=== PATIENT | female | born 1950 | race Caucasian/White ===

== ENCOUNTER → 2017-12-16 08:08 | Outpatient (CLI) | payer OTHER, SELFPAY ==
--- NOTE | 2017-12-16 | DI.MG.S_ITS ---
BILATERAL DIGITAL SCREENING MAMMOGRAM 3D/2D WITH CAD: 12/16/2017 CLINICAL: Routine screening. Family history of breast cancer. Comparison is made to exams dated: 06/18/2016 mammogram, 06/07/2014 mammogram - [facility], and 02/21/2013 ultrasound - [facility]. The tissue of both breasts is heterogeneously dense. This may lower the sensitivity of mammography. Current study was also evaluated with a Computer Aided Detection (CAD) system. There is a biopsy clip in the right breast. No significant masses, calcifications, or other findings are seen in either breast. There has been no significant interval change. IMPRESSION: NEGATIVE There is no mammographic evidence of malignancy. A 1 year screening mammogram is recommended. This exam was interpreted at Station ID: [id number]. NOTE: For mammograms, a report in lay terms will be sent to the patient. Approximately 15% of breast malignancies will not be visualized mammographically. In the management of a palpable breast mass, a negative mammogram must not discourage biopsy of a clinically suspicious lesion. Electronically Signed By: Magy sellers/kemi:12/16/2017 10:40:52 letter sent: Normal Exam ACR BI-RADS Category 1: Negative 3341F
== END ==
PROVIDERS: Family Provider Physician Assistant; PCP Physician Assistant; Visit Provider Physician Assistant
DX: Z12.31 Encounter for screening mammogram for malignant neoplasm of breast (principal); Z80.3 Family history of malignant neoplasm of breast
CPT/HCPCS: 77063; 77067

== ENCOUNTER → 2017-12-22 09:15 | Outpatient (CLI) | payer OTHER, SELFPAY ==
--- NOTE | 2017-12-22 09:38 | DI.RAD.S_ITS ---
PROCEDURE: XR CHEST 2V INDICATIONS: cough, dyspnea, possible CHF vs exacerbation of COPD TECHNIQUE: 2 views of the chest were acquired. COMPARISON: [facility], , CHEST 1 VIEW, 08/08/2017, 20:40. FINDINGS: Surgical changes and devices: Surgical clips RUQ. Lungs and pleura: No pleural effusions or pneumothorax. Lungs are clear. Hyperinflation. Mediastinum: Mediastinal contours are normal. Heart size is normal. Bones and chest wall: No suspicious bony abnormalities. Soft tissues appear unremarkable. IMPRESSION: No radiographic evidence of acute cardiopulmonary pathology. Hyperinflation may represent COPD. Dictated by: Emanuel Lloyd M.D. on 12/22/2017 at 10:43 Approved by: Emanuel Lloyd M.D. on 12/22/2017 at 10:44
[2017-12-22 09:57] LABS: Alanine Aminotransferase 14 IU/L (9-52); Albumin 4.2 g/dL (3.5-5.0); Albumin Globulin Ratio 1.3 (1.0-2.8); Alkaline Phosphatase 80 U/L (38-126); Aspartate Aminotransferase 21 IU/L (14-36); B Type Natriuretic Peptide 66.5 (<100); BUN Creatinine Ratio 23.3 (6-22); Bilirubin Total 0.3 mg/dL (0.2-1.3); Blood Urea Nitrogen 14 mg/dL (7-17); Calcium 9.3 mg/dL (8.4-10.2); Carbon Dioxide 29 mmol/L (22-32); Chloride 104 mmol/L (98-107); Cholesterol 168 mg/dL (140-199); Estimated Glomerular Filt Rate > 60.0 mL/min (>60); Globulin 3.3 g/dL (1.7-4.1); Glucose 95 mg/dL (80-110); HDL Cholesterol 73 mg/dL (40-60); HEMOLYSIS < 15 (0-50); LDL Cholesterol Calculated 81 mg/dL (<100); Potassium 3.9 mmol/L (3.4-5.1); Sodium 143 mmol/L (137-145); Total Protein 7.5 g/dL (6.3-8.2); Triglycerides 71 mg/dL (35-150)
[2017-12-22 12:32] LABS: Creatinine Urine Random 43.2 mg/dL
[2017-12-22 12:41] LABS: Microalbumi Creatinin Ratio Ur 13.8 ug/mg CR (<30); Microalbumin Urine Random < 0.6 mg/dL (0-1.6)
== END ==
PROVIDERS: Family Provider Physician Assistant; PCP Physician Assistant; Visit Provider Physician Assistant
DX: E78.5 Hyperlipidemia, unspecified (principal); I10 Essential (primary) hypertension; R05 Cough; R09.89 Other specified symptoms and signs involving the circulatory and respiratory systems; R06.00 Dyspnea, unspecified
CPT/HCPCS: 71046; 80053; 80061; 82043; 82570; 83880

== ENCOUNTER → 2018-09-11 08:11 | Outpatient (CLI) | payer OTHER, SELFPAY ==
[2018-09-11 09:34] LABS: Alanine Aminotransferase 14 IU/L (9-52); Albumin Globulin Ratio 1.3 (1.0-2.8); Alkaline Phosphatase 75 U/L (38-126); Aspartate Aminotransferase 20 IU/L (14-36); BUN Creatinine Ratio 21.7 (6-22); Bilirubin Total 0.5 mg/dL (0.2-1.3); Blood Urea Nitrogen 13 mg/dL (7-17); Calcium 9.1 mg/dL (8.4-10.2); Carbon Dioxide 29 mmol/L (22-32); Chloride 103 mmol/L (98-107); Cholesterol 171 mg/dL (140-199); Estimated Glomerular Filt Rate > 60.0 mL/min (>60); Globulin 3.1 g/dL (1.7-4.1); Glucose 97 mg/dL (80-110); HDL Cholesterol 72 mg/dL (40-60); HEMOLYSIS < 15 (0-50); LDL Cholesterol Calculated 82 mg/dL (<100); Potassium 3.8 mmol/L (3.4-5.1); Sodium 139 mmol/L (137-145); Total Protein 7.1 g/dL (6.3-8.2); Triglycerides 85 mg/dL (35-150)
[2018-09-11 11:37] LABS: Microalbumi Creatinin Ratio Ur 10.7 ug/mg CR (<30); Microalbumin Urine Random < 0.6 mg/dL (0-1.6)
== END ==
PROVIDERS: Family Provider Physician Assistant; PCP Physician Assistant; Referring Provider Internal Medicine Cardiovascular Disease; Visit Provider Physician Assistant
DX: E55.9 Vitamin D deficiency, unspecified (principal); E78.5 Hyperlipidemia, unspecified; F17.200 Nicotine dependence, unspecified, uncomplicated; I10 Essential (primary) hypertension; I20.0 Unstable angina; I77.1 Stricture of artery; J44.9 Chronic obstructive pulmonary disease, unspecified; M85.80 Other specified disorders of bone density and structure, unspecified site
CPT/HCPCS: 36415; 80053; 80061; 82043; 82306; 82570

== ENCOUNTER → 2018-09-20 08:36 | Outpatient (CLI) | payer OTHER, SELFPAY ==
--- NOTE | 2018-09-20 | DI.ECHO.S_ITS ---
[facility] +---------+ [facility] +---------+ : : [address] : : : : [place] : : : : [id number] : : : : Phone: [phone]---------+ Echocardiogram Report + + :Name: SYDNEE LANGE Study Date: 09/20/2018 Height: 62 in : :[facility] Location: [place] Weight: 181 lb : : Gender: Female BSA: 1.8 m2 : :: 1950 Age: 67 yrs BP: 160/80 mmHg: :Reason For Study: Aortic valve disorder : :Ordering Physician: : :Isidoro Duffy M.D. Performed By: Kimberly Page : + + Interpretation Summary sThe ejection fraction is estimated to be 60-65%. There is mild to moderate mitral annular calcification. The aortic valve is not well visualized. The peak aortic velocity is 2.1 m/sec. The calculated aortic valve area is 0.93 cm2. This is an overestimate of severity, consider ZENY if clinical findings support severe Procedure: A two-dimensional transthoracic echocardiogram with color flow and Doppler was performed. The study quality was technically adequate. Comparison is made with the echocardiogram of 08/09/2017. The patient was in normal sinus rhythm during the exam. Left Ventricle: The left ventricle is normal in size, wall thickness, and systolic function without any focal wall motion abnormalities. The ejection fraction is estimated to be 60-65%. Left ventricular wall motion is normal. Right Ventricle: The right ventricle is normal in size and function. Atria: The left atrium is borderline dilated. Right atrial size is normal. There is no Doppler evidence for an interatrial shunt. Mitral Valve: There is mild to moderate mitral annular calcification. There is trace mitral regurgitation. Aortic Valve: The aortic valve is not well visualized. The peak aortic velocity is 2.1 m/sec. The peak aortic velocity on the previous exam was 1.9 m/sec. The calculated aortic valve area is 0.93 cm2. The aortic valve mean gradient is 9.0 mmHg. No aortic regurgitation is present. Tricuspid Valve: The tricuspid valve is not well visualized, but is grossly normal. There is a trace or physiologic amount of tricuspid regurgitation. Pulmonary artery pressures cannot be estimated because of the lack of a measurable TR jet velocity. Pulmonic Valve: The pulmonic valve is not well visualized. There is trace pulmonic regurgitation. Great Vessels: The aortic root is normal size. The ascending aorta could not be visualized. The pulmonary is not well visualized. The IVC is of normal diameter and collapses greater than 50% with a sniff. This suggests a low right atrial pressure of 3 mm Hg. Pericardium/ Pleura There is no pericardial effusion. There is no pleural effusion. MMode/2D Measurements & Calculations LVIDd: 4.1 cm LVOT diam: 1.7 cm LVIDs: 3.2 cm Ao root diam: 2.8 cm FS: 22.6 % IVSd: 0.95 cm LVPWd: 0.95 cm LV ennis. diameter/BSA (cm/m^2): 2.3 LV sys. diameter/BSA (cm/m^2): 1.7 LA A2 area: 20.0 cm2 RA long axis: 4.6 cm LA A4 area: 19.9 cm2 RA area: 14.2 cm2 LA length (vol): 5.3 cm RA vol: 37.2 ml LA vol: 63.7 ml RA : 20.3 ml/m2 LA vol index: 34.8 ml/m2 IVC diam: 2.0 cm RVD1 (basal): 3.5 cm TAPSE: 2.3 cm Doppler Measurements & Calculations Ao V2 max: 205.7 cm/sec LVOT Max Felix: 90.1 cm/sec Ao V2 mean: 144.9 cm/sec LV V1 max P.2 mmHg Ao max P.9 mmHg LV V1 VTI: 18.5 cm Ao mean P.0 mmHg RACHEL(I,D): 0.93 cm2 Ao V2 VTI: 45.8 cm RACHEL(V,D): 1.0 cm2 sev ratio: 0.40 RACHEL indexed to BSA (cm^2/m^2): 0.51 MV E max felix: 110.4 cm/sec PA V2 max: 60.5 cm/sec MV A max felix: 107.9 cm/sec PA V2 mean: 43.8 cm/sec MV E/A: 1.0 PA mean P.84 mmHg Med Peak E' Felix: 7.3 cm/sec PA Accel Time: 0.15 sec E/E' med: 15.1 Lat Peak E' Felix: 8.6 cm/sec E/E' lat: 12.9 E/e' average: 14.0 MV dec time: 0.19 sec MV P1/2t: 55.8 msec MV P1/2t max felix: 110.5 cm/sec SV(LVOT): 42.4 ml MVA(P1/2t): 3.9 cm2 Reading Physician:01:36 PM
== END ==
PROVIDERS: PCP Physician Assistant; Visit Provider Internal Medicine Cardiovascular Disease
DX: I35.9 Nonrheumatic aortic valve disorder, unspecified (principal)
CPT/HCPCS: 93306

== ENCOUNTER → 2019-04-30 07:05 | Outpatient (CLI) | payer OTHER, SELFPAY ==
[2019-04-30 08:18] LABS: Add Manual Diff / Slide Review NO; Basophils Absolute Auto 100 /uL (0-100); Eosinophils Absolute Auto 100 /uL (0-450); Eosinophils Percent Auto 2.3 % (2-4); Hematocrit 41.2 % (36-46); Hemoglobin 13.9 g/dL (12.0-16.0); Lymphocytes Absolute Auto 2300 /uL (1100-4500); Mean Corpuscular HGB Conc 33.8 % (30-36); Mean Corpuscular Hemoglobin 32.5 PG (26-34); Mean Corpuscular Volume 96.3 fL (80-100); Monocytes Absolute Auto 400 /uL (0-900); Monocytes Percent Auto 7.6 % (3-14); Neutrophils Absolute Auto 2400 /uL (1500-7000); Neutrophils Percent Auto 46.1 % (50-75); Platelet Count 227 X10^3/uL (150-400); Red Blood Cell Count 4.27 X10^6/uL (4.0-5.2); Red Cell Distribution Width 15.7 % (11.6-14.8); White Blood Cell Count 5.2 X10^3/uL (4.5-11.0)
[2019-04-30 08:52] LABS: Alanine Aminotransferase 15 IU/L (<35); Albumin 4.3 g/dL (3.5-5.0); Albumin Globulin Ratio 1.3 (1.0-2.8); Alkaline Phosphatase 66 U/L (38-126); Aspartate Aminotransferase 25 IU/L (14-36); BUN Creatinine Ratio 18.6 (6-22); Blood Urea Nitrogen 13 mg/dL (7-17); Calcium 9.4 mg/dL (8.4-10.2); Carbon Dioxide 29 mmol/L (22-32); Chloride 104 mmol/L (98-107); Cholesterol 185 mg/dL (140-199); Estimated Glomerular Filt Rate > 60.0 mL/min (>60); Globulin 3.2 g/dL (1.7-4.1); Glucose 95 mg/dL (80-110); HDL Cholesterol 71 mg/dL (40-60); HEMOLYSIS < 15 (0-50); LDL Cholesterol Calculated 92 mg/dL (<100); Potassium 4.1 mmol/L (3.4-5.1); Sodium 138 mmol/L (137-145); Total Protein 7.5 g/dL (6.3-8.2); Triglycerides 112 mg/dL (35-150)
[2019-04-30 08:58] LABS: Microalbumi Creatinin Ratio Ur 7.3 ug/mg CR (<30); Microalbumin Urine Random < 0.6 mg/dL (0-1.6)
[2019-04-30 09:06] LABS: Vitamin D 25 Hydroxy (D3) 44.8 ng/mL (30.0-100.0)
== END ==
PROVIDERS: Family Provider Internal Medicine Cardiovascular Disease; PCP Physician Assistant; Visit Provider Physician Assistant
DX: E78.5 Hyperlipidemia, unspecified (principal); I10 Essential (primary) hypertension; J44.9 Chronic obstructive pulmonary disease, unspecified; E55.9 Vitamin D deficiency, unspecified; M85.80 Other specified disorders of bone density and structure, unspecified site
CPT/HCPCS: 36415; 80053; 80061; 82043; 82306; 82570; 85025

== ENCOUNTER → 2019-05-09 15:02 | Outpatient (CLI) | payer OTHER, SELFPAY ==
--- NOTE | 2019-05-09 15:05 | DI.MG.S_ITS ---
BILATERAL DIGITAL SCREENING MAMMOGRAM 3D/2D WITH CAD: 05/09/2019 CLINICAL: Routine screening. Family history of breast cancer. Comparison is made to exams dated: 12/16/2017 mammogram, 06/18/2016 mammogram, and 06/07/2014 mammogram - [facility]. The tissue of both breasts is heterogeneously dense. This may lower the sensitivity of mammography. Current study was also evaluated with a Computer Aided Detection (CAD) system. There is a biopsy clip in the right breast. No significant masses, calcifications, or other findings are seen in either breast. There has been no significant interval change. IMPRESSION: NEGATIVE There is no mammographic evidence of malignancy. A 1 year screening mammogram is recommended. This exam was interpreted at Station ID: [id number]. NOTE: For mammograms, a report in lay terms will be sent to the patient. Approximately 15% of breast malignancies will not be visualized mammographically. In the management of a palpable breast mass, a negative mammogram must not discourage biopsy of a clinically suspicious lesion. Electronically Signed By: Pradip fair/kemi:05/09/2019 16:37:34 letter sent: Normal Exam ACR BI-RADS Category 1: Negative 3341F
== END ==
PROVIDERS: Family Provider Internal Medicine Cardiovascular Disease; PCP Physician Assistant; Visit Provider Physician Assistant
DX: Z12.31 Encounter for screening mammogram for malignant neoplasm of breast (principal); Z80.3 Family history of malignant neoplasm of breast; M85.851 Other specified disorders of bone density and structure, right thigh; Z78.0 Asymptomatic menopausal state; F17.200 Nicotine dependence, unspecified, uncomplicated; Z90.722 Acquired absence of ovaries, bilateral; Z82.62 Family history of osteoporosis
CPT/HCPCS: 77063; 77067; 77080

== ENCOUNTER → 2019-09-12 13:36 | Outpatient (CLI) | payer OTHER, SELFPAY ==
--- NOTE | 2019-09-12 | DI.ECHO.S_ITS ---
[place] +---------+ [facility] +---------+ : : [address] : : [place] : : : : [id number] : : : : Phone: [phone] : : [phone]+ Echocardiogram Report + + :Name: SYDNEE LANGE Study Date: 09/12/2019 Height: 61.5 in: :[facility] Weight: 181 lb : : Gender: Female BSA: 1.8 m2 : :: 1950 Age: 68 yrs : :Reason For Study: Aortic Valve Disorder : :Ordering Physician: Martha : :Clive Ma Performed By: Farhana Aguilar : :Referring: MARTHA DUFFY : + + Interpretation Summary The ejection fraction is estimated to be 55-60%. The aortic valve is mildly calcified. There is mild aortic stenosis. The calculated aortic valve area is 1.5 cm2. Procedure: A two-dimensional transthoracic echocardiogram with color flow and Doppler was performed. The study quality was technically difficult. Comparison is made with the echocardiogram of 04/30/2019. The patient was in normal sinus rhythm during the exam. Short segment of SVT visualized during exam with heart rate reaching 125bpm. Left Ventricle: The left ventricle is normal in size and wall thickness. The ejection fraction is estimated to be 55-60%. There are no obvious focal wall motion abnormalities noted but poor endocardial definition reduces the sensitivity for the detection of such. Right Ventricle: The right ventricle is normal in size and function. Atria: The left atrial size is normal. The right atrium is normal in size. There is no Doppler evidence for an interatrial shunt. Mitral Valve: The mitral valve is normal in structure and function. There is mild mitral annular calcification. There is trace mitral regurgitation. Aortic Valve: The aortic valve is mildly calcified. The aortic valve is trileaflet. There is mild aortic stenosis. The calculated aortic valve area is 1.5 cm2. There has been no significant change since the previous study. No aortic regurgitation is present. Tricuspid Valve: The tricuspid valve is normal in structure and function. There is a trace or physiologic amount of tricuspid regurgitation. Pulmonary artery pressures cannot be estimated because of the lack of a measurable TR jet velocity but the IVC suggests a CVP of around 3 mmHg. Pulmonic Valve: The pulmonic valve is not well visualized. There is no pulmonic valvular regurgitation. Great Vessels: The aortic root is normal size. The ascending aorta could not be visualized. The IVC is of normal diameter and collapses greater than 50% with a sniff. This suggests a low right atrial pressure of 3 mm Hg. Pericardium/ Pleura There is no pericardial effusion. There is no pleural effusion. MMode/2D Measurements & Calculations LVIDd: 3.4 cm LVOT diam: 2.0 cm LVIDs: 2.3 cm Ao root diam: 3.0 cm FS: 33.5 % Ao Arch Diam (Prox Trans): 2.3 cm EPSS: 0.64 cm IVSd: 1.0 cm LVPWd: 1.0 cm LV ennis. diameter/BSA (cm/m^2): 1.9 LV sys. diameter/BSA (cm/m^2): 1.2 LA A2 area: 14.8 cm2 RA long axis: 4.7 cm LA A4 area: 15.1 cm2 RA area: 11.9 cm2 LA length (vol): 5.0 cm RA vol: 25.7 ml LA vol: 38.1 ml RA : 14.1 ml/m2 LA vol index: 20.9 ml/m2 IVC diam: 1.4 cm RVD1 (basal): 3.0 cm TAPSE: 2.2 cm Doppler Measurements & Calculations Ao V2 max: 228.2 cm/sec LVOT Max Felix: 118.6 cm/sec Ao V2 mean: 145.1 cm/sec LV V1 max P.6 mmHg Ao max P.8 mmHg LV V1 VTI: 23.0 cm Ao mean P.9 mmHg RACHEL(I,D): 1.5 cm2 Ao V2 VTI: 47.7 cm RACHEL(V,D): 1.6 cm2 sev ratio: 0.48 RACHEL indexed to BSA (cm^2/m^2): 0.81 MV E max felix: 96.3 cm/sec PA V2 max: 89.4 cm/sec MV A max felix: 116.8 cm/sec PA V2 mean: 61.7 cm/sec MV E/A: 0.82 PA mean P.7 mmHg Med Peak E' Felix: 5.5 cm/sec PA pr(Accel): 32.3 mmHg E/E' med: 17.6 PA Accel Time: 0.09 sec Lat Peak E' Felix: 8.7 cm/sec E/E' lat: 11.0 E/e' average: 14.3 MV dec time: 0.31 sec MV P1/2t: 88.4 msec MV P1/2t max felix: 96.7 cm/sec SV(LVOT): 70.3 ml MVA(P1/2t): 2.5 cm2 Reading Physician:11:31 AM
== END ==
PROVIDERS: Family Provider Internal Medicine Cardiovascular Disease; PCP Family Medicine; Referring Provider Internal Medicine Cardiovascular Disease; Visit Provider Internal Medicine Cardiovascular Disease
DX: I35.0 Nonrheumatic aortic (valve) stenosis (principal)
CPT/HCPCS: 93306

== ENCOUNTER → 2019-11-14 09:43 | Outpatient (CLI) | payer OTHER, SELFPAY ==
[2019-11-14 10:14] LABS: Add Manual Diff / Slide Review NO; Basophils Absolute Auto 0 /uL (0-100); Basophils Percent Auto 0.8 % (0-2); Eosinophils Absolute Auto 100 /uL (0-450); Eosinophils Percent Auto 1.3 % (2-4); Hematocrit 40.3 % (36-46); Hemoglobin 13.7 g/dL (12.0-16.0); Lymphocytes Absolute Auto 2100 /uL (1100-4500); Lymphocytes Percent Auto 32.5 % (25-40); Mean Corpuscular Hemoglobin 33.2 PG (26-34); Mean Corpuscular Volume 97.8 fL (80-100); Monocytes Absolute Auto 400 /uL (0-900); Monocytes Percent Auto 6.7 % (3-14); Neutrophils Absolute Auto 3700 /uL (1500-7000); Neutrophils Percent Auto 58.7 % (50-75); Platelet Count 217 X10^3/uL (150-400); Red Blood Cell Count 4.12 X10^6/uL (4.0-5.2); Red Cell Distribution Width 15.3 % (11.6-14.8); White Blood Cell Count 6.4 X10^3/uL (4.5-11.0)
[2019-11-14 10:26] LABS: Alanine Aminotransferase 14 IU/L (<35); Albumin 4.4 g/dL (3.5-5.0); Albumin Globulin Ratio 1.3 (1.0-2.8); Alkaline Phosphatase 82 U/L (38-126); Aspartate Aminotransferase 23 IU/L (14-36); BUN Creatinine Ratio 22.9 (6-22); Bilirubin Total 0.6 mg/dL (0.2-1.3); Blood Urea Nitrogen 16 mg/dL (7-17); Carbon Dioxide 28 mmol/L (22-32); Chloride 102 mmol/L (98-107); Estimated Glomerular Filt Rate > 60.0 mL/min (>60); Globulin 3.5 g/dL (1.7-4.1); Glucose 105 mg/dL (80-110); HEMOLYSIS < 15 (0-50); Potassium 4.3 mmol/L (3.4-5.1); Sodium 139 mmol/L (137-145); Total Protein 7.9 g/dL (6.3-8.2)
[2019-11-14 13:17] LABS: Erythrocyte Sedimentation Rate 19 MM/HR (0-20)
[2019-11-16 22:35] LABS: Immunoglobulin E 247 IU/mL (6-495)
== END ==
PROVIDERS: Family Provider Internal Medicine Cardiovascular Disease; PCP Family Medicine; Referring Provider Allergy & Immunology; Visit Provider Allergy & Immunology
DX: J45.40 Moderate persistent asthma, uncomplicated (principal)
CPT/HCPCS: 36415; 80053; 82785; 85025; 85651

== ENCOUNTER → 2019-11-19 11:06 | Outpatient (CLI) | payer OTHER, SELFPAY ==
--- NOTE | 2019-11-19 | DI.RAD.S_ITS ---
PROCEDURE: XR CHEST 2V INDICATIONS: Chronic cough, long-term smoker TECHNIQUE: 2 views of the chest were acquired. COMPARISON: [facility], CR, XR CHEST 2V, 12/22/2017, 9:47. FINDINGS: Surgical changes and devices: Right upper quadrant surgical clips. Lungs and pleura: Lungs are clear. Scattered scarring/atelectasis No pleural effusions or pneumothorax. Mediastinum: Mediastinal contours are normal. Heart size is normal. Bones and chest wall: No suspicious bony abnormalities. Soft tissues appear unremarkable. IMPRESSION: No acute disease Dictated by: Pavel Fletcher M.D. on 11/19/2019 at 14:50 Approved by: Pavel Fletcher M.D. on 11/19/2019 at 14:50
--- NOTE | 2019-11-19 | DI.CT.S_ITS ---
PROCEDURE: CT SINUS SCREEN WO CON INDICATIONS: Chronic sinusitis TECHNIQUE: Noncontrast 3.0 mm axial images acquired from the frontal sinuses to the mid-sella, with coronal and sagittal reformats. For radiation dose reduction, the following was used: automated exposure control, adjustment of mA and/or kV according to patient size. COMPARISON: None. FINDINGS: Image quality: Excellent. Maxillary Sinuses: No bony remodeling or destruction. Sinuses are clear. Ethmoid Air Cells: No bony remodeling or destruction. Sinuses are clear. Sphenoid Sinuses: Mild mucosal thickening seen within the left sphenoid sinus. Frontal Sinuses: No bony remodeling or destruction. Sinuses are clear. Ostiomeatal Complexes: Ostiomeatal complexes are patent. No David cells. Miscellaneous: Visualized intra-orbital contents are normal. No lyndsay bullosa or paradoxical turbinate curvature. No nasal septal deviation. IMPRESSION: Mild left sphenoid sinus mucosal thickening. Otherwise, clear sinuses Dictated by: Pavel Fletcher M.D. on 11/19/2019 at 13:08 Approved by: Pavel Fletcher M.D. on 11/19/2019 at 13:12
== END ==
PROVIDERS: Family Provider Internal Medicine Cardiovascular Disease; PCP Family Medicine; Referring Provider Allergy & Immunology; Visit Provider Allergy & Immunology
DX: J32.9 Chronic sinusitis, unspecified (principal); R05 Cough; J45.40 Moderate persistent asthma, uncomplicated; F17.200 Nicotine dependence, unspecified, uncomplicated
CPT/HCPCS: 70486; 71046

== ENCOUNTER → 2020-02-01 10:06 | Outpatient (CLI) | payer OTHER, SELFPAY ==
[2020-02-01 10:51] LABS: Add Manual Diff / Slide Review NO; Basophils Absolute Auto 0 /uL (0-100); Basophils Percent Auto 0.8 % (0-2); Eosinophils Absolute Auto 100 /uL (0-450); Eosinophils Percent Auto 1.5 % (2-4); Hematocrit 40.1 % (36-46); Hemoglobin 13.2 g/dL (12.0-16.0); Lymphocytes Absolute Auto 2000 /uL (1100-4500); Lymphocytes Percent Auto 35.9 % (25-40); Mean Corpuscular HGB Conc 32.8 % (30-36); Mean Corpuscular Volume 97.5 fL (80-100); Monocytes Absolute Auto 400 /uL (0-900); Monocytes Percent Auto 7.7 % (3-14); Neutrophils Absolute Auto 3000 /uL (1500-7000); Neutrophils Percent Auto 54.1 % (50-75); Platelet Count 231 X10^3/uL (150-400); Red Blood Cell Count 4.11 X10^6/uL (4.0-5.2); Red Cell Distribution Width 15.9 % (11.6-14.8); White Blood Cell Count 5.6 X10^3/uL (4.5-11.0)
[2020-02-01 11:13] LABS: Erythrocyte Sedimentation Rate 23 MM/HR (0-20)
[2020-02-01 11:15] LABS: Alanine Aminotransferase 13 IU/L (<35); Albumin 4.3 g/dL (3.5-5.0); Albumin Globulin Ratio 1.4 (1.0-2.8); Alkaline Phosphatase 92 U/L (38-126); Aspartate Aminotransferase 20 IU/L (14-36); BUN Creatinine Ratio 26.9 (6-22); Bilirubin Total 0.6 mg/dL (0.2-1.3); Blood Urea Nitrogen 18 mg/dL (7-17); Calcium 9.6 mg/dL (8.4-10.2); Carbon Dioxide 29 mmol/L (22-32); Chloride 105 mmol/L (98-107); Estimated Glomerular Filt Rate > 60.0 mL/min (>60); Globulin 3.1 g/dL (1.7-4.1); Glucose 99 mg/dL (80-110); HEMOLYSIS < 15 (0-50); Potassium 4.1 mmol/L (3.4-5.1); Sodium 139 mmol/L (137-145); Total Protein 7.4 g/dL (6.3-8.2)
== END ==
PROVIDERS: Family Provider Internal Medicine Cardiovascular Disease; PCP Family Medicine; Referring Provider Family Medicine; Visit Provider Family Medicine
DX: J32.9 Chronic sinusitis, unspecified (principal); J45.40 Moderate persistent asthma, uncomplicated
CPT/HCPCS: 36415; 80053; 85025; 85651

== ENCOUNTER → 2020-06-14 09:29 | Outpatient (CLI) | payer OTHER, SELFPAY ==
[2020-06-14 11:06] LABS: COVID19 -Nasal RAPID Negative (Negative)
== END ==
PROVIDERS: Family Provider Internal Medicine Cardiovascular Disease; PCP Family Medicine; Visit Provider Nurse Practitioner
DX: Z20.822 Contact with and (suspected) exposure to COVID-19 (principal)
CPT/HCPCS: 87635

== ENCOUNTER 2020-06-17 07:26 | Day surgery (SDC) | payer OTHER, SELFPAY ==
[2020-06-17] MEDS: PROPARACAINE 0.5% OPHTH SOL 2 DROPS EYE-OP (07:50)
[2020-06-17 07:58] VITALS: BP 136/72; PULSE 80; RESP 18; TEMP 36.8; O2SAT 95; BMI 32.9
[2020-06-17] MEDS: CATARACT EYE COMPOUND (10 DROPS/SYRINGE) 3 DROPS EYE-OP (08:20)
--- NOTE | 2020-06-17 08:37 | PM.PREOP ---
Pre-operative Note Interval Note History & Physical reviewed/Exam performed by Physician: Yes Changes to H&P: No
--- NOTE | 2020-06-17 08:37 | PM.OP.1 ---
Operative Date/Time/Diagnoses Pre-op diagnosis: Nuclear cataract right eye Procedure & Clinicians Procedure: Cataract Surgery Same procedure as scheduled: Yes Surgeon: Jordan Babin Anesthesia Type: MAC +/- and Sedation Operative Notes Procedure in detail: Patient brought to the operating suite. Tetracaine drops placed in the right eye. Patient was prepped and draped in sterile manner. Wire lid speculum was placed in the eye. Betadine drops were placed on the eye. This was irrigated. Lidocaine jelly was placed on the eye. A paracentesis port was created with a side-port blade. 0.1 mL 1% preservative free lidocaine was injected into the anterior chamber. The anterior chamber was deepened with viscoelastic. 2.6 mm keratome was used to create a temporal clear corneal incision. Cystotome and Utrata forceps were used to create continuous tear capsulorrhexis. Balanced salt solution was used to hydro dissect the nucleus. The phacoemulsification handpiece was inserted and the nucleus was removed using the stop and chop technique. The irrigation aspiration handpiece was inserted and the remaining cortex was removed. Anterior chamber was deepened with viscoelastic. An Medina ZCB00 intraocular lens with a power of 24.5 was injected into the capsular bag. Irrigation aspiration handpiece was inserted and the remaining viscoelastic was removed. Incision was hydrated with balanced salt solution and found to be leak free with pressure with Weck-Aster sponges. 0.1 mL Vigamox injected anterior chamber. 0.3 mL Kenalog 10 mg was injected subconjunctivally. Lid speculum was removed. The patient left the operating room in excellent condition. Complications: none Post-operative Condition: stable Disposition: same day surgery
[2020-06-17] MEDS: MOXIFLOXACIN INJ 5 MG/ML VIAL EYE-OP (09:02)
[2020-06-17] MEDS: TRIAMCINOLONE 50 MG/5 ML VIAL INJ (09:02)
[2020-06-17] MEDS: PHENYLEPHRINE/LIDOCAINE VIAL (OR) 0.2 ML EYE-OP (09:02)
[2020-06-17] MEDS: LIDOCAINE JELLY 2% 5 ML 1 APPLIC TOP (09:03)
[2020-06-17] MEDS: CHONDROIDTIN/SOD HYALURONATE 1.05 ML SYRINGE INTRAOCULA (09:03)
[2020-06-17] MEDS: TETRACAINE 0.5% OPHTH DROPS 4 ML 2 DROPS EYE-OP (09:03)
[2020-06-17] MEDS: BALANCED SALT IRRIG SOLN NO.2 500 ML, EPINEPHrine 1 MG IRR (09:04)
[2020-06-17 09:15] VITALS: BP 132/69; PULSE 75; RESP 18; TEMP 36.1; O2SAT 96
--- NOTE | 2020-06-17 09:32 | SUR.PHASEII ---
Pt met criteria for discharge, VSS, denied any pain or nausea. R eye with shield in place, C/D/I. Transported via w/c to private vehicle.
== END 2020-06-17 09:28 | disposition home or self-care (01) ==
LOC: OR 07:27
PROVIDERS: Family Provider Internal Medicine Cardiovascular Disease; PCP Family Medicine; Referring Provider Family Medicine; Visit Provider Ophthalmology
PROC: (CPT 66984; principal; 2020-06-17 09:15)
DX: H25.11 Age-related nuclear cataract, right eye (principal); J45.909 Unspecified asthma, uncomplicated; I10 Essential (primary) hypertension; E78.00 Pure hypercholesterolemia, unspecified
CPT/HCPCS: 66984; J0171; J2250; J3301

== ENCOUNTER → 2020-06-28 10:08 | Outpatient (CLI) | payer OTHER, SELFPAY ==
[2020-06-28 10:53] LABS: COVID19 -Nasal RAPID Negative (Negative)
== END ==
PROVIDERS: Family Provider Internal Medicine Cardiovascular Disease; PCP Family Medicine; Visit Provider Physician Assistant
DX: Z20.822 Contact with and (suspected) exposure to COVID-19 (principal)
CPT/HCPCS: 87635

== ENCOUNTER 2020-07-01 09:19 | Day surgery (SDC) | payer OTHER, SELFPAY ==
[2020-07-01] MEDS: PROPARACAINE 0.5% OPHTH SOL 2 DROPS EYE-OP (09:50)
[2020-07-01 09:53] VITALS: BP 133/79; PULSE 80; RESP 16; TEMP 36.3; O2SAT 98; BMI 32.9
[2020-07-01] MEDS: CATARACT EYE COMPOUND (10 DROPS/SYRINGE) 3 DROPS EYE-OP (10:01)
--- NOTE | 2020-07-01 10:22 | P.OP_ITS ---
Operative Date/Time/Diagnoses Pre-op diagnosis: Nuclear Cataract Left eye Post-op diagnosis: same Procedure & Clinicians Same procedure as scheduled: Yes Surgeon: Jordan Babin Anesthesia Type: MAC +/- and Sedation Operative Notes Procedure in detail: Patient brought to the operating suite. Tetracaine drops placed in the left eye. Patient was prepped and draped in sterile manner. Wire lid speculum was placed in the eye. Betadine drops were placed on the eye. This was irrigated. Lidocaine jelly was placed on the eye. A paracentesis port was created with a side-port blade. 0.1 mL 1% preservative free lidocaine was injected into the anterior chamber. The anterior chamber was deepened with viscoelastic. 2.6 mm keratome was used to create a temporal clear corneal incision. Cystotome and Utrata forceps were used to create continuous tear capsulorrhexis. Balanced salt solution was used to hydro dissect the nucleus. The phacoemulsification handpiece was inserted and the nucleus was removed using the stop and chop technique. The irrigation aspiration handpiece was inserted and the remaining cortex was removed. Anterior chamber was deepened with viscoe lastic. An Medina ZCB00 intraocular lens with a power of 24.5 was injected into the capsular bag. Irrigation aspiration handpiece was inserted and the remaining viscoelastic was removed. Incision was hydrated with balanced salt solution and found to be leak free with pressure with Weck-Aster sponges. 0.1 mL Vigamox injected anterior chamber. 0.3 mL Kenalog 10 mg was injected subconjunctivally. Lid speculum was removed. The patient left the operating room in excellent condition. Complications: none Post-operative Condition: stable Disposition: same day surgery
--- NOTE | 2020-07-01 10:22 | PM.PREOP ---
Pre-operative Note Interval Note History & Physical reviewed/Exam performed by Physician: Yes Changes to H&P: No
[2020-07-01] MEDS: MOXIFLOXACIN INJ 5 MG/ML VIAL EYE-OP (10:53)
[2020-07-01] MEDS: CHONDROIDTIN/SOD HYALURONATE 1.05 ML SYRINGE INTRAOCULA (10:53)
[2020-07-01] MEDS: PHENYLEPHRINE/LIDOCAINE VIAL (OR) 0.2 ML EYE-OP (10:53)
[2020-07-01] MEDS: LIDOCAINE JELLY 2% 5 ML 1 APPLIC TOP (10:53)
[2020-07-01] MEDS: TRIAMCINOLONE 50 MG/5 ML VIAL INJ (10:53)
[2020-07-01] MEDS: TETRACAINE 0.5% OPHTH DROPS 4 ML 2 DROPS EYE-OP (10:54)
[2020-07-01] MEDS: BALANCED SALT IRRIG SOLN NO.2 500 ML, EPINEPHrine 1 MG IRR (10:54)
[2020-07-01 11:12] VITALS: BP 117/68; PULSE 76; RESP 16; TEMP 36.6; O2SAT 96
== END 2020-07-01 11:25 | disposition home or self-care (01) ==
PROVIDERS: Family Provider Internal Medicine Cardiovascular Disease; PCP Family Medicine; Referring Provider Ophthalmology; Visit Provider Ophthalmology
PROC: (CPT 66984; principal; 2020-07-01 11:15)
DX: H25.12 Age-related nuclear cataract, left eye (principal); K21.9 Gastro-esophageal reflux disease without esophagitis; J45.909 Unspecified asthma, uncomplicated; F41.9 Anxiety disorder, unspecified; I10 Essential (primary) hypertension; E66.9 Obesity, unspecified
CPT/HCPCS: 66984; J0171; J2250; J3301

== ENCOUNTER → 2020-07-11 13:37 | Outpatient (CLI) | payer OTHER, SELFPAY ==
--- NOTE | 2020-07-11 | DI.ECHO.S_ITS ---
[facility] +---------+ Hospital +---------+ : : [address] : : : [place] : : : : [phone] : : : : Phone: [phone] : : [phone] +---------+ Echocardiogram Report + + :Name: SYDNEE LANGE Study Date: 07/11/2020 Height: 62 in : :[facility] ReadingLocation: Weight: 178 lb : : Gender: Female BSA: 1.8 m2 : :: 1950 Age: 69 yrs BP: 146/73 mmHg: :Reason For Study: AORTIC VAVLE DISORDER : :Ordering Physician: Antonette : :Karan Performed By: Merline Stoll : + + Interpretation Summary The ejection fraction is estimated to be 60-65%. The aortic valve is mildly calcified. The calculated aortic valve area is 1.3 cm2. Procedure: A two-dimensional transthoracic echocardiogram with color flow and Doppler was performed. Images from the parasternal window were difficult to obtain and are suboptimal in quality. Comparison is made with the echocardiogram of 09/12/2019. The patient was in normal sinus rhythm during the exam. Left Ventricle: The left ventricle is normal in size. There is normal left ventricular wall thickness. There is no ventricular septal defect visualized. The ejection fraction is estimated to be 60-65%. There are no focal wall motion abnormalities. Right Ventricle: The right ventricle is normal in size and function. Atria: Both atria are normal in size. There is no Doppler evidence for an interatrial shunt. Mitral Valve: There is mild mitral annular calcification. There is no mitral regurgitation noted. Aortic Valve: The aortic valve is mildly calcified. The peak aortic velocity is 2.4 m/sec. The aortic valve mean gradient is 11.7 mmHg. The calculated aortic valve area is 1.3 cm2. Compared to the prior echo study, there has been an increase in the severity of aortic stenosis. No aortic regurgitation is present. Tricuspid Valve: The tricuspid valve is not well visualized. Pulmonary artery pressures cannot be estimated because of the lack of a measurable TR jet velocity but the IVC suggests a CVP of around 8 mmHg. Pulmonic Valve: The pulmonic valve is not well visualized. Great Vessels: The aortic root is normal size. The ascending aorta is normal in size. The aortic arch could not be visualized. The IVC is of normal diameter and collapses less than 50% with a sniff. This suggests a right atrial pressure of 8 mm Hg. Pericardium/ Pleura There is no pericardial effusion. MMode/2D Measurements & Calculations LVIDd: 4.0 cm LVOT diam: 2.0 cm LVIDs: 2.5 cm Ao root diam: 2.9 cm FS: 36.9 % asc Aorta Diam: 3.2 cm IVSd: 0.97 cm LVPWd: 0.92 cm LV ennis. diameter/BSA (cm/m^2): 2.2 LV sys. diameter/BSA (cm/m^2): 1.4 LA A2 area: 17.0 cm2 RA long axis: 4.0 cm LA A4 area: 16.5 cm2 RA area: 10.9 cm2 LA length (vol): 4.8 cm RA vol: 24.9 ml LA vol: 49.5 ml RA : 13.7 ml/m2 LA vol index: 27.2 ml/m2 IVC diam: 1.3 cm RVD1 (basal): 2.9 cm TAPSE: 2.5 cm Doppler Measurements & Calculations Ao V2 max: 241.7 cm/sec LVOT Max Felix: 89.6 cm/sec Ao V2 mean: 160.0 cm/sec LV V1 max P.2 mmHg Ao max P.4 mmHg LV V1 VTI: 20.2 cm Ao mean P.7 mmHg RACHEL(I,D): 1.3 cm2 Ao V2 VTI: 49.2 cm RACHEL(V,D): 1.1 cm2 sev ratio: 0.41 RACHEL indexed to BSA (cm^2/m^2): 0.70 MV E max felix: 93.0 cm/sec PA V2 max: 108.3 cm/sec MV A max felix: 123.5 cm/sec PA V2 mean: 67.7 cm/sec MV E/A: 0.75 PA mean P.2 mmHg Med Peak E' Felix: 5.1 cm/sec PA Accel Time: 0.08 sec E/E' med: 18.1 Lat Peak E' Felix: 8.8 cm/sec E/E' lat: 10.6 E/e' average: 14.3 MV dec time: 0.20 sec MV P1/2t: 59.4 msec MV P1/2t max felix: 93.1 cm/sec SV(LVOT): 62.4 ml MVA(P1/2t): 3.7 cm2 Reading Physician:01:24 PM
== END ==
PROVIDERS: Family Provider Internal Medicine Cardiovascular Disease; PCP Family Medicine; Referring Provider Registered Nurse; Visit Provider Registered Nurse
DX: I35.0 Nonrheumatic aortic (valve) stenosis (principal)
CPT/HCPCS: 93306

== ENCOUNTER → 2020-08-18 09:33 | Outpatient (CLI) | payer OTHER, SELFPAY ==
[2020-08-18 10:42] LABS: BUN Creatinine Ratio 22.5 (6-22); Blood Urea Nitrogen 16 mg/dL (7-17); Calcium 9.6 mg/dL (8.4-10.2); Carbon Dioxide 30 mmol/L (22-32); Chloride 102 mmol/L (98-107); Estimated Glomerular Filt Rate > 60.0 mL/min (>60); Glucose 105 mg/dL (80-110); HEMOLYSIS < 15 (0-50); Sodium 137 mmol/L (137-145)
== END ==
PROVIDERS: Family Provider Internal Medicine Cardiovascular Disease; PCP Family Medicine; Referring Provider Family Medicine; Visit Provider Family Medicine
DX: I10 Essential (primary) hypertension (principal)
CPT/HCPCS: 36415; 80048

== ENCOUNTER → 2020-09-18 13:30 | Outpatient (CLI) | payer MEDICARE, SELFPAY ==
[2020-09-18] MEDS: COVID-19 VACC #1, MRNA(MOD) 100 MCG/0.5 ML VIAL IM (13:41)
== END ==
PROVIDERS: Family Provider Internal Medicine Cardiovascular Disease; PCP Family Medicine; Visit Provider Internal Medicine
DX: Z23 Encounter for immunization (principal)
CPT/HCPCS: 0011A; 91301

== ENCOUNTER → 2020-10-16 13:25 | Outpatient (CLI) | payer MEDICARE, SELFPAY ==
[2020-10-16] MEDS: COVID-19 VACC #2, MRNA(MOD) 100 MCG/0.5 ML VIAL IM (13:33)
== END ==
PROVIDERS: Family Provider Internal Medicine Cardiovascular Disease; PCP Family Medicine; Visit Provider Internal Medicine
DX: Z23 Encounter for immunization (principal)
CPT/HCPCS: 0012A; 91301

== ENCOUNTER → 2020-12-10 09:41 | Outpatient (CLI) | payer OTHER, SELFPAY ==
--- NOTE | 2020-12-10 09:43 | DI.RAD.S_ITS ---
PROCEDURE: XR KNEE LT 3V INDICATIONS: knee pain, effusion TECHNIQUE: 3 views of the knee were acquired. COMPARISON: None. FINDINGS: Bones: No fractures or dislocations. No suspicious bony lesions. Moderate medial compartment joint space narrowing and marginal osteophyte noted. Generalized decreased osseous mineralization present. Soft tissues: No joint effusion. No suspicious soft tissue calcifications. 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 Osteopenia. Dictated by: Ziyad Serna M.D. on 12/10/2020 at 9:57 Approved by: Ziyad Serna M.D. on 12/10/2020 at 10:06
== END ==
PROVIDERS: Family Provider Internal Medicine Cardiovascular Disease; PCP Family Medicine; Referring Provider Family Medicine; Visit Provider Family Medicine
DX: M25.562 Pain in left knee (principal); M25.462 Effusion, left knee; M85.862 Other specified disorders of bone density and structure, left lower leg
CPT/HCPCS: 73562

== ENCOUNTER → 2021-03-10 07:45 | Outpatient (CLI) | payer OTHER, SELFPAY ==
[2021-03-10 09:23] LABS: Add Manual Diff / Slide Review NO; Basophils Absolute Auto 0 /uL (0-100); Basophils Percent Auto 0.7 % (0-2); Eosinophils Absolute Auto 100 /uL (0-450); Hematocrit 40.3 % (36-46); Hemoglobin 13.1 g/dL (12.0-16.0); Lymphocytes Absolute Auto 2400 /uL (1100-4500); Lymphocytes Percent Auto 36.2 % (25-40); Mean Corpuscular HGB Conc 32.5 % (30-36); Mean Corpuscular Hemoglobin 32.4 PG (26-34); Mean Corpuscular Volume 99.9 fL (80-100); Monocytes Absolute Auto 600 /uL (0-900); Monocytes Percent Auto 8.3 % (3-14); Neutrophils Absolute Auto 3500 /uL (1500-7000); Neutrophils Percent Auto 52.8 % (50-75); Platelet Count 202 X10^3/uL (150-400); Red Blood Cell Count 4.04 X10^6/uL (4.0-5.2); Red Cell Distribution Width 15.3 % (11.6-14.8); White Blood Cell Count 6.7 X10^3/uL (4.5-11.0)
[2021-03-10 09:34] LABS: Alanine Aminotransferase 13 IU/L (<35); Albumin Globulin Ratio 1.3 (1.0-2.8); Alkaline Phosphatase 79 U/L (38-126); Aspartate Aminotransferase 21 IU/L (14-36); BUN Creatinine Ratio 26.2 (6-22); Bilirubin Total 0.5 mg/dL (0.2-1.3); Blood Urea Nitrogen 17 mg/dL (7-17); Calcium 9.7 mg/dL (8.4-10.2); Carbon Dioxide 33 mmol/L (22-32); Chloride 103 mmol/L (98-107); Cholesterol 172 mg/dL (140-199); Estimated Glomerular Filt Rate > 60.0 mL/min (>60); Globulin 3.1 g/dL (1.7-4.1); Glucose 94 mg/dL (80-110); HDL Cholesterol 66 mg/dL (40-60); HEMOLYSIS < 15 (0-50); LDL Cholesterol Calculated 86 mg/dL (<100); Potassium 3.8 mmol/L (3.4-5.1); Sodium 139 mmol/L (137-145); Total Protein 7.1 g/dL (6.3-8.2); Triglycerides 102 mg/dL (35-150)
[2021-03-10 10:17] LABS: TSH w/ Reflex to FT4 1.17 uIU/mL (0.47-4.68)
== END ==
PROVIDERS: Family Provider Internal Medicine Cardiovascular Disease; PCP Family Medicine; Referring Provider Family Medicine; Visit Provider Family Medicine
DX: E66.9 Obesity, unspecified (principal); E78.5 Hyperlipidemia, unspecified; J44.9 Chronic obstructive pulmonary disease, unspecified; R73.01 Impaired fasting glucose
CPT/HCPCS: 36415; 80053; 80061; 84443; 85025

== ENCOUNTER → 2021-05-19 07:58 | Outpatient (CLI) | payer OTHER, SELFPAY ==
--- NOTE | 2021-05-19 | DI.ECHO.S_ITS ---
[facility] +---------+ : : 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 The ejection fraction is estimated to be 60-65%. There is mild to moderate mitral annular calcification. There is trace mitral regurgitation. The aortic valve is mildly calcified. The calculated aortic valve area is 1.3 cm2. Procedure: A two-dimensional transthoracic echocardiogram with color flow and Doppler was performed. The study quality was technically adequate. There is no prior echocardiogram noted for this patient. The patient was in sinus rhythm with heart rates between 66-71 bpm during the exam. Left Ventricle: The left ventricle is normal in size and wall thickness. The ejection fraction is estimated to be 60-65%. Left ventricular wall motion is normal. Right Ventricle: The right ventricle is normal in size and function. Atria: The left atrial size is normal. Right atrial size is normal. There is no Doppler evidence for an interatrial shunt. Mitral Valve: There is mild to moderate mitral annular calcification. The mitral valve leaflets appear mildly thickened, but open well. There is trace mitral regurgitation. Aortic Valve: The aortic valve is mildly calcified. The peak aortic velocity is 2.23 m/sec. The aortic valve mean gradient is 11 mmHg. The calculated aortic valve area is 1.3 cm2. No aortic regurgitation is present. Tricuspid Valve: The tricuspid valve is normal in structure and function. There is trace tricuspid regurgitation. Pulmonic Valve: The pulmonic valve is not well visualized. There is no pulmonic valvular regurgitation. Great Vessels: The aortic root is normal size. The ascending aorta could not be visualized. The IVC is of normal diameter and collapses greater than 50% with a sniff. This suggests a low right atrial pressure of 3 mm Hg. Pericardium/ Pleura There is no pericardial effusion. There is no pleural effusion. MMode/2D Measurements & Calculations LVIDd: 4.2 cm LVOT diam: 2.0 cm LVIDs: 3.0 cm Ao root diam: 3.0 cm FS: 28.5 % IVSd: 0.73 cm LVPWd: 0.84 cm LV ennis. diameter/BSA (cm/m^2): 2.4 LV sys. diameter/BSA (cm/m^2): 1.7 LA A2 area: 14.6 cm2 RA long axis: 3.7 cm LA A4 area: 14.0 cm2 RA area: 8.8 cm2 LA length (vol): 4.4 cm RA vol: 17.7 ml LA vol: 39.0 ml RA : 10.0 ml/m2 LA vol index: 22.1 ml/m2 IVC diam: 0.99 cm RVD1 (basal): 2.9 cm TAPSE: 2.1 cm Doppler Measurements & Calculations Ao V2 max: 223.7 cm/sec LVOT Max Felix: 91.7 cm/sec Ao V2 mean: 161.0 cm/sec LV V1 max P.4 mmHg Ao max P.0 mmHg LV V1 VTI: 21.8 cm Ao mean P.1 mmHg RACHEL(I,D): 1.2 cm2 Ao V2 VTI: 56.3 cm RACHEL(V,D): 1.3 cm2 sev ratio: 0.39 RACHEL indexed to BSA (cm^2/m^2): 0.71 MV E max felix: 104.8 cm/sec PA V2 max: 84.9 cm/sec MV A max felix: 120.2 cm/sec PA V2 mean: 59.8 cm/sec MV E/A: 0.87 PA mean P.6 mmHg Med Peak E' Felix: 6.2 cm/sec PA pr(Accel): 15.6 mmHg E/E' med: 16.8 Lat Peak E' Felix: 7.5 cm/sec E/E' lat: 13.9 E/e' average: 15.4 MV dec time: 0.30 sec MVA(VTI): 1.8 cm2 MV V2 mean: 66.1 cm/sec SV(LVOT): 70.3 ml MV mean P.0 mmHg MV V2 VTI: 40.0 cm Reading Physician:09:46 AM
== END ==
PROVIDERS: Family Provider Internal Medicine Cardiovascular Disease; PCP Family Medicine; Referring Provider Registered Nurse; Visit Provider Registered Nurse
DX: I35.9 Nonrheumatic aortic valve disorder, unspecified (principal)
CPT/HCPCS: 93306

== ENCOUNTER → 2021-10-15 08:31 | Outpatient (CLI) | payer OTHER, SELFPAY ==
[2021-10-15 11:16] LABS: BUN Creatinine Ratio 16.7 (6-22); Blood Urea Nitrogen 11 mg/dL (7-17); Calcium 9.6 mg/dL (8.4-10.2); Carbon Dioxide 30 mmol/L (22-32); Chloride 104 mmol/L (98-107); Estimated Glomerular Filt Rate > 60 mL/min (>60); Glucose 101 mg/dL (80-110); HEMOLYSIS < 15 (0-50); Potassium 4.3 mmol/L (3.4-5.1); Sodium 139 mmol/L (137-145)
[2021-10-15 12:27] LABS: Creatinine Urine Random 30.1 mg/dL
[2021-10-15 12:38] LABS: Microalbumin Urine Random < 0.6 mg/dL (0-1.6)
== END ==
PROVIDERS: Family Provider Internal Medicine Cardiovascular Disease; PCP Family Medicine; Referring Provider Family Medicine; Visit Provider Family Medicine
DX: I10 Essential (primary) hypertension (principal)
CPT/HCPCS: 36415; 80048; 82043; 82570

== ENCOUNTER → 2021-11-24 12:58 | Outpatient (CLI) | payer OTHER, SELFPAY ==
--- NOTE | 2021-11-24 12:59 | DI.MG.S_ITS ---
BILATERAL DIGITAL SCREENING MAMMOGRAM 3D/2D WITH CAD: 11/24/2021 CLINICAL: Routine screening. Family history of breast cancer. Comparison is made to exams dated: 05/09/2019 mammogram, 12/16/2017 mammogram, 06/18/2016 mammogram, and 06/07/2014 mammogram - [facility]. The tissue of both breasts is heterogeneously dense. This may lower the sensitivity of mammography. Current study was also evaluated with a Computer Aided Detection (CAD) system. There is a biopsy clip in the right breast. No significant masses, calcifications, or other findings are seen in either breast. There has been no significant interval change. IMPRESSION: NEGATIVE There is no mammographic evidence of malignancy. A 1 year screening mammogram is recommended. This exam was interpreted at Station ID: [id number]. NOTE: For mammograms, a report in lay terms will be sent to the patient. Approximately 15% of breast malignancies will not be visualized mammographically. In the management of a palpable breast mass, a negative mammogram must not discourage biopsy of a clinically suspicious lesion. Electronically Signed By: Manuel albert/kemi:11/24/2021 14:49:00 letter sent: Normal Exam ACR BI-RADS Category 1: Negative 3341F
== END ==
PROVIDERS: Family Provider Internal Medicine Cardiovascular Disease; PCP Family Medicine; Referring Provider Family Medicine; Visit Provider Family Medicine
DX: Z12.31 Encounter for screening mammogram for malignant neoplasm of breast (principal); Z80.3 Family history of malignant neoplasm of breast
CPT/HCPCS: 77063; 77067

== ENCOUNTER → 2022-04-09 13:37 | Outpatient (CLI) | payer OTHER, SELFPAY ==
--- NOTE | 2022-04-09 | DI.CT.S_ITS ---
PROCEDURE: CT LUNG LOW DOSE SCREENING INDICATIONS: Chronic obstructive pulmonary disease, unspecified TECHNIQUE: Noncontrast 2.0-2.5 mm thick sections acquired from the pulmonary apices to the posterior costophrenic angles. 7 mm thick axial MIP, and 5 mm coronal and sagittal reformats were then acquired. A low radiation dose technique was utilized. COMPARISON: [facility], CT, CT LOW DOSE LUNG CA SCREENING, 04/14/2021, 12:40. FINDINGS: Image quality: Diagnostic, given the low radiation dose technique. Lungs and pleura: There is a 4 mm nodule in the right lower lobe (series 3, image 182), new since the last exam. There are subpleural scars and atelectasis in anterior right upper lobe, lingula and left lower lobe. No acute pulmonary opacities. Mediastinum: Heart size is normal. No pericardial effusion. Moderate coronary artery calcification. No mediastinal adenopathy by size criteria. Thoracic aorta and central pulmonary arteries are normal in size. Moderate aortic calcification. Esophagus is normal in caliber. No hiatal hernia. Bones and chest wall: No suspicious bony lesions. No vertebral body compression fractures. No axillary or supraclavicular adenopathy by size criteria. Thyroid gland is normal. Abdomen: Visualized upper abdomen solid organs and bowel loops appear normal in the absence of contrast. IMPRESSION: 1. A new 4 mm nodule in the right lower lobe. LUNG-RADS 3, probably benign; recommend a 6 month follow-up CT. 2. Moderate emphysema. 3. Moderate atherosclerosis. Dictated by: Ramesh Peters M.D. on 04/09/2022 at 14:45 Approved by: Ramesh Peters M.D. on 04/09/2022 at 14:50
== END ==
PROVIDERS: Family Provider Internal Medicine Cardiovascular Disease; PCP Family Medicine; Referring Provider Family Medicine; Visit Provider Family Medicine
DX: J43.9 Emphysema, unspecified (principal); R91.1 Solitary pulmonary nodule; I25.10 Atherosclerotic heart disease of native coronary artery without angina pectoris; I70.0 Atherosclerosis of aorta; F17.200 Nicotine dependence, unspecified, uncomplicated
CPT/HCPCS: 71250

== ENCOUNTER → 2022-04-12 08:57 | Outpatient (CLI) | payer OTHER, SELFPAY ==
[2022-04-12 10:16] LABS: Add Manual Diff / Slide Review NO; Basophils Absolute Auto 0 /uL (0-100); Basophils Percent Auto 0.8 % (0-2); Eosinophils Absolute Auto 100 /uL (0-450); Eosinophils Percent Auto 1.8 % (2-4); Hematocrit 41.1 % (36-46); Hemoglobin 13.9 g/dL (12.0-16.0); Lymphocytes Absolute Auto 1900 /uL (1100-4500); Lymphocytes Percent Auto 37.4 % (25-40); Mean Corpuscular HGB Conc 33.9 % (30-36); Mean Corpuscular Volume 97.2 fL (80-100); Monocytes Absolute Auto 400 /uL (0-900); Monocytes Percent Auto 8.2 % (3-14); Neutrophils Absolute Auto 2700 /uL (1500-7000); Neutrophils Percent Auto 51.8 % (50-75); Platelet Count 224 X10^3/uL (150-400); Red Blood Cell Count 4.23 X10^6/uL (4.0-5.2); White Blood Cell Count 5.1 X10^3/uL (4.5-11.0)
[2022-04-12 10:49] LABS: Alanine Aminotransferase 19 IU/L (<35); Albumin 4.2 g/dL (3.5-5.0); Albumin Globulin Ratio 1.3 (1.0-2.8); Alkaline Phosphatase 76 U/L (38-126); Aspartate Aminotransferase 23 IU/L (14-36); BUN Creatinine Ratio 19.8 (6-22); Bilirubin Total 0.8 mg/dL (0.2-1.3); Blood Urea Nitrogen 16 mg/dL (7-17); Calcium 9.7 mg/dL (8.4-10.2); Carbon Dioxide 30 mmol/L (22-32); Chloride 103 mmol/L (98-107); Cholesterol 176 mg/dL (140-199); Estimated Glomerular Filt Rate > 60 mL/min (>60); Globulin 3.2 g/dL (1.7-4.1); Glucose 107 mg/dL (80-110); HDL Cholesterol 80 mg/dL (40-60); HEMOLYSIS < 15 (0-50); LDL Cholesterol Calculated 82 mg/dL (<100); Potassium 4.4 mmol/L (3.4-5.1); Sodium 140 mmol/L (137-145); Total Protein 7.4 g/dL (6.3-8.2); Triglycerides 69 mg/dL (35-150)
== END ==
PROVIDERS: Family Provider Internal Medicine Cardiovascular Disease; PCP Family Medicine; Referring Provider Nurse Practitioner Family; Visit Provider Nurse Practitioner Family
DX: I10 Essential (primary) hypertension (principal); I73.9 Peripheral vascular disease, unspecified; E78.2 Mixed hyperlipidemia
CPT/HCPCS: 36415; 80053; 80061; 85025

== ENCOUNTER → 2022-11-22 12:29 | Outpatient (CLI) | payer OTHER, SELFPAY ==
--- NOTE | 2022-11-22 12:31 | DI.CT.S_ITS ---
PROCEDURE: CT CHEST WO CON INDICATIONS: low dose lung screening TECHNIQUE: Noncontrast 2.0-2.5 mm thick sections acquired from the pulmonary apices to the posterior costophrenic angles. 7 mm thick axial MIP, and 5 mm coronal and sagittal reformats were then acquired. A low radiation dose technique was utilized. COMPARISON: CT 04/09/2022, 04/14/2021 or 6. FINDINGS: Image quality: Diagnostic, given the low radiation dose technique. Lungs and pleura: Moderate centrilobular emphysema. 8 x 9 millimeter solid nodule in the medial right lower lobe (series 3, image 185), previously 3 millimeters . Mediastinum: Heart size is normal. No pericardial effusion. No mediastinal adenopathy by size criteria. Thoracic aorta and central pulmonary arteries are normal in size. Esophagus is normal in caliber. No hiatal hernia. Three-vessel coronary calcifications. Bones and chest wall: No suspicious bony lesions. No vertebral body compression fractures. No axillary or supraclavicular adenopathy by size criteria. Thyroid gland is unremarkable. Abdomen: Benign left adrenal nodule by Hounsfield units criteria (-9 Hounsfield unit). IMPRESSION: Growing 8 x 9 millimeter solid nodule in the medial right lower lobe. LUNG-RADS 4a; three-month follow-up CT versus PET-CT. Marked coronary artery calcifications for age. Consider cardiology referral. Dictated by: Pito Navarro M.D. on 11/22/2022 at 14:22 Approved by: Pito Navarro M.D. on 11/22/2022 at 14:28
== END ==
PROVIDERS: Family Provider Internal Medicine Cardiovascular Disease; PCP Family Medicine; Referring Provider Family Medicine; Visit Provider Family Medicine
DX: J44.9 Chronic obstructive pulmonary disease, unspecified (principal); E27.9 Disorder of adrenal gland, unspecified; R91.1 Solitary pulmonary nodule; I25.10 Atherosclerotic heart disease of native coronary artery without angina pectoris; F17.200 Nicotine dependence, unspecified, uncomplicated
CPT/HCPCS: 71250

== ENCOUNTER → 2022-11-25 12:42 | Outpatient (CLI) | payer OTHER, SELFPAY ==
--- NOTE | 2022-11-25 | DI.MG.S_ITS ---
BILATERAL DIGITAL SCREENING MAMMOGRAM 3D/2D WITH CAD: 11/25/2022 CLINICAL: Routine screening. Family history of breast cancer. Comparison is made to exams dated: 11/24/2021 mammogram, 05/09/2019 mammogram, and 12/16/2017 mammogram - [facility]. Both breasts are heterogeneously dense, which may obscure small masses (category c / 51-75% glandular tissue). Current study was also evaluated with a Computer Aided Detection (CAD) system. There is a biopsy clip in the right breast. No significant masses, calcifications, or other findings are seen in either breast. There has been no significant interval change. IMPRESSION: NEGATIVE There is no mammographic evidence of malignancy. A 1 year screening mammogram is recommended. Based on the Tyrer Cuzick model (a risk assessment model) the patient's lifetime risk is 4.1% and her 10 year risk is 3.3%. According to the ACR, ACS, and NCCN guidelines, an annual breast MRI exam along with mammogram is recommended if the patient's lifetime risk is 20% or greater. This exam was interpreted at Station ID: [id number]. NOTE: For mammograms, a report in lay terms will be sent to the patient. Approximately 15% of breast malignancies will not be visualized mammographically. In the management of a palpable breast mass, a negative mammogram must not discourage biopsy of a clinically suspicious lesion. Electronically Signed By: Ramez castro/kemi:11/25/2022 15:33:33 letter sent: Normal Exam ACR BI-RADS Category 1: Negative 3341F
== END ==
PROVIDERS: Family Provider Internal Medicine Cardiovascular Disease; PCP Family Medicine; Referring Provider Family Medicine; Visit Provider Family Medicine
DX: Z12.31 Encounter for screening mammogram for malignant neoplasm of breast (principal); Z80.3 Family history of malignant neoplasm of breast
CPT/HCPCS: 77063; 77067

== ENCOUNTER → 2023-02-14 08:20 | Outpatient (CLI) | payer OTHER, SELFPAY ==
[2023-02-14 09:10] LABS: Add Manual Diff / Slide Review NO; Basophils Absolute Auto 100 /uL (0-100); Eosinophils Absolute Auto 100 /uL (0-450); Eosinophils Percent Auto 1.9 % (2-4); Hematocrit 40.3 % (36-46); Hemoglobin 13.5 g/dL (12.0-16.0); Lymphocytes Absolute Auto 2000 /uL (1100-4500); Lymphocytes Percent Auto 36.1 % (25-40); Mean Corpuscular HGB Conc 33.6 % (30-36); Mean Corpuscular Hemoglobin 32.8 PG (26-34); Mean Corpuscular Volume 97.7 fL (80-100); Monocytes Absolute Auto 400 /uL (0-900); Monocytes Percent Auto 7.7 % (3-14); Neutrophils Absolute Auto 3000 /uL (1500-7000); Neutrophils Percent Auto 53.3 % (50-75); Platelet Count 248 X10^3/uL (150-400); Red Blood Cell Count 4.13 X10^6/uL (4.0-5.2); Red Cell Distribution Width 15.2 % (11.6-14.8); White Blood Cell Count 5.6 X10^3/uL (4.5-11.0)
[2023-02-14 09:29] LABS: Alanine Aminotransferase 15 IU/L (<35); Albumin 4.2 g/dL (3.5-5.0); Albumin Globulin Ratio 1.4 (1.0-2.8); Alkaline Phosphatase 82 U/L (38-126); Aspartate Aminotransferase 20 IU/L (14-36); BUN Creatinine Ratio 21.2 (6-22); Bilirubin Total 0.5 mg/dL (0.2-1.3); Blood Urea Nitrogen 14 mg/dL (7-17); Calcium 9.5 mg/dL (8.4-10.2); Carbon Dioxide 32 mmol/L (22-32); Chloride 101 mmol/L (98-107); Estimated Glomerular Filt Rate > 60 mL/min (>60); Glucose 96 mg/dL (80-110); HEMOLYSIS < 15 (0-50); Potassium 4.6 mmol/L (3.4-5.1); Sodium 138 mmol/L (137-145); Total Protein 7.2 g/dL (6.3-8.2)
[2023-02-16 12:40] LABS: QuantiFERON Mitogen Value >10.00 IU/mL (.); QuantiFERON Nil Value 0.29 IU/mL (.); QuantiFERON TB Gold Plus Negative (Negative); QuantiFERON TB1 Ag Value 0.22 IU/mL (.)
[2023-02-18 13:51] LABS: Estrogen 58 pg/mL (40-244)
== END ==
PROVIDERS: Family Provider Internal Medicine Cardiovascular Disease; PCP Family Medicine; Referring Provider Family Medicine; Visit Provider Family Medicine
DX: E78.5 Hyperlipidemia, unspecified (principal); I49.3 Ventricular premature depolarization; J44.9 Chronic obstructive pulmonary disease, unspecified; R91.1 Solitary pulmonary nodule; Z86.11 Personal history of tuberculosis
CPT/HCPCS: 36415; 80053; 82672; 85025; 86480

== ENCOUNTER → 2023-02-16 08:46 | Outpatient (CLI) | payer OTHER, SELFPAY ==
--- NOTE | 2023-02-16 08:47 | DI.CT.S_ITS ---
PROCEDURE: CT CHEST WO CON INDICATIONS: 3 month Lung nodule follow up/size check TECHNIQUE: Noncontrast 5 mm thick sections acquired from the pulmonary apices to the posterior costophrenic angles. 1 mm lung window, 5 mm thick coronal and sagittal and 7 mm axial MIP reformats were then acquired. For radiation dose reduction, the following was used: automated exposure control, adjustment of mA and/or kV according to patient size. COMPARISON: [facility], CT, CT LUNG LOW DOSE SCREENING, 04/09/2022, 13:43. [facility], CT, CT CHEST WO CON, 11/22/2022, 12:38. FINDINGS: Image quality: Excellent. Lungs and pleura: Interval growth of the medial right lower lobe solid nodule measuring 12 x 9 millimeter, previously 3 millimeters on 04/09/2022 and 8 x 9 millimeters on 11/22/2022. Mediastinum: Heart size is normal. No pericardial effusion. No mediastinal adenopathy by size criteria. Thoracic aorta and central pulmonary arteries are normal in size. Esophagus is normal in caliber. No hiatal hernia. Marked coronary artery calcifications for age. Bones and chest wall: No suspicious bony lesions. No vertebral body compression fractures. No axillary or supraclavicular adenopathy by size criteria. Thyroid gland is unremarkable . Abdomen: Benign left adrenal nodule by Hounsfield unit criteria (8 Hounsfield unit). IMPRESSION: Interval growth of the right lower lobe solid nodule measuring 12 x 9 millimeters, previously 8 x 9 millimeters on 11/22/2022 and 3 millimeters in 2021. Rate of growth is worrisome for malignancy. Consider PET-CT or biopsy. Dictated by: Pito Navarro M.D. on 02/16/2023 at 10:28 Approved by: Pito Navarro M.D. on 02/16/2023 at 10:44
== END ==
PROVIDERS: Family Provider Internal Medicine Cardiovascular Disease; PCP Family Medicine; Referring Provider Family Medicine; Visit Provider Family Medicine
DX: R91.1 Solitary pulmonary nodule (principal); J43.9 Emphysema, unspecified
CPT/HCPCS: 71250

== ENCOUNTER → 2023-04-08 09:43 | Outpatient (CLI) | payer OTHER, SELFPAY | PROVIDERS: Family Provider Internal Medicine Cardiovascular Disease; PCP Family Medicine; Referring Provider Internal Medicine Pulmonary Disease; Visit Provider Internal Medicine Pulmonary Disease | DX: J44.9 Chronic obstructive pulmonary disease, unspecified (principal); F17.210 Nicotine dependence, cigarettes, uncomplicated | CPT/HCPCS: 94060; 94726; 94729 ==

== ENCOUNTER → 2023-06-02 | Outpatient (CLI) | payer OTHER, SELFPAY ==
--- NOTE | 2023-06-02 | DI.ECHO.S_ITS ---
[place] [facility]---------+ [facility] +---------+ : : [address] : [address] : : : : [phone] : : : : Phone: [phone]+ Echocardiogram Report + + :Name: SYDNEE LANGE Study Date: 06/02/2023 Height: 61 in : :[facility] ReadingLocation: Weight: 176 lb : : Gender: Female BSA: 1.8 m2 : :: 1950 Age: 72 yrs BP: 131/74 mmHg: :Reason For Study: AORTIC STENOSIS : :Ordering Physician: DANA, : :JOHNNIE Performed By: Farhana Aguilar : :Referring: JOHNNIE CORTEZ : + + Interpretation Summary The ejection fraction is estimated to be 60-65%. There is moderate mitral annular calcification. The calculated aortic valve area is 1.3 cm2. There has been no significant change since the previous study. The right ventricular systolic pressure is estimated to be at least 23 mmHg based on an estimated right atrial pressure of 3 mm Hg. Procedure: A two-dimensional transthoracic echocardiogram with color flow and Doppler was performed. The study quality was technically adequate. Comparison is made with the echocardiogram of 05/19/2021. The patient was in sinus rhythm with heart rates between 67-76 bpm during the exam. Left Ventricle: The left ventricle is normal in size and wall thickness. The ejection fraction is estimated to be 60-65%. Left ventricular wall motion is normal. Right Ventricle: The right ventricle is normal in size and function. Atria: The left atrial size is normal. Right atrial size is normal. There is no Doppler evidence for an interatrial shunt. Mitral Valve: The mitral valve leaflets appear mildly thickened, but open well. There is moderate mitral annular calcification. There is no mitral regurgitation noted. Aortic Valve: The aortic valve is mildly calcified. The peak aortic velocity is 2.3 m/sec. The aortic valve mean gradient is 10 mmHg. The calculated aortic valve area is 1.3 cm2. There has been no significant change since the previous study. No aortic regurgitation is present. Tricuspid Valve: The tricuspid valve is normal in structure and function. There is trace tricuspid regurgitation. The right ventricular systolic pressure is estimated to be at least 23 mmHg based on an estimated right atrial pressure of 3 mm Hg. Pulmonic Valve: The pulmonic valve is not well visualized. There is no pulmonic valvular regurgitation. Great Vessels: The aortic root is normal size. The ascending aorta could not be visualized. The IVC is of normal diameter and collapses greater than 50% with a sniff. This suggests a low right atrial pressure of 3 mm Hg. Pericardium/ Pleura There is no pericardial effusion. There is no pleural effusion. MMode/2D Measurements & Calculations LVIDd: 4.8 cm LVOT diam: 2.0 cm LVIDs: 3.0 cm Ao root diam: 2.8 cm FS: 36.3 % Ao Arch Diam (Prox Trans): 2.1 cm IVSd: 0.82 cm LVPWd: 0.75 cm LV ennis. diameter/BSA (cm/m^2): 2.7 LV sys. diameter/BSA (cm/m^2): 1.7 LA A2 area: 15.8 cm2 RA long axis: 4.4 cm LA A4 area: 14.8 cm2 RA area: 11.4 cm2 LA length (vol): 4.8 cm RA vol: 24.9 ml LA vol: 41.7 ml RA : 13.9 ml/m2 LA vol index: 23.3 ml/m2 IVC diam: 1.2 cm RVD1 (basal): 2.7 cm RVD2 (mid): 2.0 cm TAPSE: 1.7 cm Doppler Measurements & Calculations Ao V2 max: 229.0 cm/sec LVOT Max Felix: 92.7 cm/sec Ao V2 mean: 149.0 cm/sec LV V1 max P.4 mmHg Ao max P.5 mmHg LV V1 VTI: 21.8 cm Ao mean P.8 mmHg RACHEL(I,D): 1.4 cm2 Ao V2 VTI: 49.5 cm RACHEL(V,D): 1.3 cm2 sev ratio: 0.44 RACHEL indexed to BSA (cm^2/m^2): 0.77 MV E max felix: 95.6 cm/sec TR max felix: 221.9 cm/sec MV A max felix: 114.5 cm/sec TR max P.7 mmHg MV E/A: 0.83 PA V2 max: 87.4 cm/sec Med Peak E' Felix: 5.0 cm/sec PA V2 mean: 68.9 cm/sec E/E' med: 19.3 PA mean P.0 mmHg Lat Peak E' Felix: 7.4 cm/sec PA pr(Accel): 27.6 mmHg E/E' lat: 13.0 E/e' average: 16.1 MV dec time: 0.27 sec SV(LVOT): 68.0 ml Reading Physician:01:45 PM
== END ==
LOC: ECHO 12:29
PROVIDERS: Family Provider Internal Medicine Cardiovascular Disease; PCP Family Medicine; Referring Provider Nurse Practitioner Family; Visit Provider Nurse Practitioner Family
DX: I34.81 Nonrheumatic mitral (valve) annulus calcification (principal)
CPT/HCPCS: 93306

== ENCOUNTER → 2023-07-26 09:41 | Outpatient (CLI) | payer OTHER, SELFPAY ==
--- NOTE | 2023-07-26 09:42 | DI.CT.S_ITS ---
PROCEDURE: CT CHEST WO CON INDICATIONS: LUNG CANCER TECHNIQUE: Noncontrast 5 mm thick sections acquired from the pulmonary apices to the posterior costophrenic angles. 1 mm lung window, 5 mm thick coronal and sagittal and 7 mm axial MIP reformats were then acquired. For radiation dose reduction, the following was used: automated exposure control, adjustment of mA and/or kV according to patient size. COMPARISON: [facility], CT, CT CHEST WO CON, 02/16/2023, 8:48. [facility], CT, CT LOW DOSE LUNG CA SCREENING, 04/14/2021, 12:40. [facility], CT, CT CHEST WO CON, 11/22/2022, 12:38. FINDINGS: Image quality: Diagnostic. Lower Neck: No enlarged lymph nodes. Thyroid: No thyroid nodules which require sonographic follow up, per consensus guidelines. Prominent right thyroid gland. Axillae: No enlarged lymph nodes. Chest Wall: Unremarkable. Bones: No suspicious osseous lesion. Lungs and Pleura: No pneumothorax or pleural effusions. Severe emphysematous change. No acute airspace opacity. Right lower lobe pulmonary nodule measuring 0.5 x 0.4 cm, (3/171), previously 0.8 x 0.8 cm. No new nodule seen. Heart: Heart size is normal. Three-vessel coronary artery calcifications. No pericardial effusion. Thoracic Vessels: The aorta and pulmonary arteries demonstrate normal size. Extensive plaque at the aortic arch. Mediastinum and Yecenia: No enlarged lymph nodes. Esophagus: No wall thickening. No hiatal hernia. Upper Abdomen: Visualized upper abdomen solid organs and bowel loops appear normal. IMPRESSION: 1. Right lower lobe pulmonary nodule measuring 0.5 cm is decreased in size. 2. No adenopathy seen. 3. No acute airspace opacity. Severe facet images change. Dictated by: Manuel Fairchild M.D. on 07/26/2023 at 12:52 Approved by: Manuel Fairchild M.D. on 07/26/2023 at 13:00
== END ==
LOC: CT 09:42
PROVIDERS: Family Provider Internal Medicine Cardiovascular Disease; PCP Family Medicine; Referring Provider Radiology Radiation Oncology; Visit Provider Radiology Radiation Oncology
DX: C34.31 Malignant neoplasm of lower lobe, right bronchus or lung (principal); R91.1 Solitary pulmonary nodule; I25.10 Atherosclerotic heart disease of native coronary artery without angina pectoris; I70.0 Atherosclerosis of aorta
CPT/HCPCS: 71250

== ENCOUNTER → 2024-01-11 09:05 | Outpatient (CLI) | payer OTHER, SELFPAY ==
--- NOTE | 2024-01-11 09:07 | DI.MG.S_ITS ---
BILATERAL DIGITAL SCREENING MAMMOGRAM 3D/2D WITH CAD: 01/11/2024 CLINICAL: Routine screening. Family history of breast cancer. Comparison is made to exams dated: 11/25/2022 mammogram, 11/24/2021 mammogram, and 05/09/2019 mammogram - [facility]. Both breasts are heterogeneously dense, which may obscure small masses (category c / 51-75% glandular tissue). Current study was also evaluated with a Computer Aided Detection (CAD) system. There is a biopsy clip in the right breast. No significant masses, calcifications, or other findings are seen in either breast. There has been no significant interval change. IMPRESSION: NEGATIVE There is no mammographic evidence of malignancy. A 1 year screening mammogram is recommended. Based on the Tyrer Cuzick model (a risk assessment model) the patient's lifetime risk is 3.5% and her 10 year risk is 3.5%. According to the ACR, ACS, and NCCN guidelines, an annual breast MRI exam along with mammogram is recommended if the patient's lifetime risk is 20% or greater. This exam was interpreted at Station ID: [id number]. NOTE: For mammograms, a report in lay terms will be sent to the patient. Approximately 15% of breast malignancies will not be visualized mammographically. In the management of a palpable breast mass, a negative mammogram must not discourage biopsy of a clinically suspicious lesion. Electronically Signed By: Ramez castro/kemi:01/11/2024 12:11:06 letter sent: Normal Exam ACR BI-RADS Category 1: Negative 3341F
== END ==
PROVIDERS: Family Provider Internal Medicine Cardiovascular Disease; PCP Family Medicine; Referring Provider Family Medicine; Visit Provider Family Medicine
DX: Z12.31 Encounter for screening mammogram for malignant neoplasm of breast (principal); Z80.3 Family history of malignant neoplasm of breast; R92.333 Mammographic heterogeneous density, bilateral breasts
CPT/HCPCS: 77063; 77067

== ENCOUNTER → 2024-02-07 11:00 | Outpatient (CLI) | payer OTHER, SELFPAY ==
--- NOTE | 2024-02-07 11:02 | DI.CT.S_ITS ---
PROCEDURE: CT CHEST WO CON INDICATIONS: LUNG CANCER TECHNIQUE: Noncontrast 2.0-2.5 mm thick sections acquired from the pulmonary apices to the posterior costophrenic angles. 7 mm thick axial MIP and 5 mm coronal and sagittal reformats were then acquired. For radiation dose reduction, the following was used: automated exposure control, adjustment of mA and/or kV according to patient size. COMPARISON: [facility], CT, CT CHEST WO CON, 07/26/2023, 9:50. FINDINGS: Image quality: Diagnostic. Lungs: Centrilobular emphysema, most pronounced and severe at bilateral lung apices. Mild discoid atelectasis in the inferior aspect of the right upper lobe, unchanged from prior exam. Previously seen 5 mm pulmonary nodule in the right lower lobe has resolved. Scattered sub 4 mm pulmonary nodules. Mild atelectasis in the left lingula. No pleural effusion pneumothorax. No pulmonary edema or focal consolidation. No suspicious pulmonary nodule. Soft tissue/mediastinum findings: 1.5 cm posterior projecting right thyroid nodule, unchanged from prior exam. Moderate calcification of the thoracic aorta. Moderate calcification of the aortic annulus. No thoracic aortic aneurysm. Heart is normal in size. No pericardial effusion. Moderate mitral annular calcification. Severe LAD and RCA coronary artery calcification. No mediastinal, hilar or axillary lymphadenopathy. Abdomen: Mild lobular contour, suggestive services. Dilated common bile duct at the star hepatis, partially visualized. Thickening of bilateral adrenal gland, unchanged. Colonic diverticulosis, partially visualized. Bones: No suspicious lytic or blastic lesion. IMPRESSION: 1. Previously seen 5 mm pulmonary nodule in the right lower lobe has resolved. No suspicious pulmonary nodule. 2. 1.5 cm right thyroid nodule. Recommend further evaluation with thyroid ultrasound. 3. Dilated common bile duct, partially visualized. Dictated by: Mica Guadarrama M.D. on 02/07/2024 at 18:35 Approved by: Mica Guadarrama M.D. on 02/07/2024 at 18:47
== END ==
PROVIDERS: Family Provider Internal Medicine Cardiovascular Disease; PCP Family Medicine; Referring Provider Radiology Radiation Oncology; Visit Provider Radiology Radiation Oncology
DX: C34.31 Malignant neoplasm of lower lobe, right bronchus or lung (principal); R91.1 Solitary pulmonary nodule; I70.0 Atherosclerosis of aorta; I34.81 Nonrheumatic mitral (valve) annulus calcification; I25.10 Atherosclerotic heart disease of native coronary artery without angina pectoris; E04.1 Nontoxic single thyroid nodule; K57.30 Diverticulosis of large intestine without perforation or abscess without bleeding
CPT/HCPCS: 71250

== ENCOUNTER → 2024-08-06 08:47 | Outpatient (CLI) | payer OTHER, SELFPAY ==
--- NOTE | 2024-08-06 08:50 | DI.CT.S_ITS ---
PROCEDURE: CT CHEST WO CON INDICATIONS: primary cancer of right lower lobe of lung TECHNIQUE: Noncontrast 5 mm thick sections acquired from the pulmonary apices to the posterior costophrenic angles. 1 mm lung window, 5 mm thick coronal and sagittal and 7 mm axial MIP reformats were then acquired. For radiation dose reduction, the following was used: automated exposure control, adjustment of mA and/or kV according to patient size. COMPARISON: [facility], CT, CT CHEST WO CON, 11/22/2022, 12:38. [facility], CT, CT CHEST WO CON, 02/07/2024, 11:16. FINDINGS: Image quality: Diagnostic. Lower Neck: No enlarged lymph nodes. Thyroid: No thyroid nodules which require sonographic follow up, per consensus guidelines. Stable posterior projection of the right thyroid lobe, possibly a parathyroid adenoma. Axillae: No enlarged lymph nodes. Chest Wall: Unremarkable. Bones: Unremarkable. Lungs and Pleura: No pneumothorax or pleural effusions. Moderate centrilobular emphysema. Resolved medial right lower lobe nodule. Heart: Heart size is normal. No pericardial effusion. Three-vessel coronary artery calcifications. Thoracic Vessels: The aorta and pulmonary arteries demonstrate normal size. Mediastinum and Yecenia: No enlarged lymph nodes. Esophagus: No wall thickening. No hiatal hernia. Upper Abdomen: Benign left adrenal adenoma based on Hounsfield units criteria (-2 Hounsfield unit). IMPRESSION: Resolved medial right lower lobe pulmonary nodule. Dictated by: Pito Navarro M.D. on 08/06/2024 at 14:24 Approved by: Pito Navarro M.D. on 08/06/2024 at 14:30
== END ==
PROVIDERS: Family Provider Internal Medicine Cardiovascular Disease; PCP Family Medicine; Referring Provider Radiology Radiation Oncology; Visit Provider Radiology Radiation Oncology
DX: C34.31 Malignant neoplasm of lower lobe, right bronchus or lung (principal); D35.02 Benign neoplasm of left adrenal gland; I35.0 Nonrheumatic aortic (valve) stenosis; J43.2 Centrilobular emphysema; I25.10 Atherosclerotic heart disease of native coronary artery without angina pectoris; I10 Essential (primary) hypertension; I73.9 Peripheral vascular disease, unspecified; E78.2 Mixed hyperlipidemia
CPT/HCPCS: 36415; 71250; 80053; 80061; 85025

== ENCOUNTER → 2024-08-06 08:50 | Outpatient (CLI) | payer OTHER, SELFPAY ==
[2024-08-06 09:33] LABS: Add Manual Diff / Slide Review NO; Basophils Absolute Auto 0 /uL (0-100); Basophils Percent Auto 0.8 % (0-2); Eosinophils Absolute Auto 100 /uL (0-450); Eosinophils Percent Auto 1.5 % (2-4); Hematocrit 41.9 % (36-46); Hemoglobin 13.9 g/dL (12.0-16.0); Lymphocytes Absolute Auto 2000 /uL (1100-4500); Lymphocytes Percent Auto 31.6 % (25-40); Mean Corpuscular HGB Conc 33.2 % (30-36); Mean Corpuscular Hemoglobin 33.5 PG (26-34); Mean Corpuscular Volume 101.1 fL (80-100); Monocytes Absolute Auto 500 /uL (0-900); Monocytes Percent Auto 7.2 % (3-14); Neutrophils Absolute Auto 3700 /uL (1500-7000); Neutrophils Percent Auto 58.9 % (50-75); Platelet Count 235 X10^3/uL (150-400); Red Blood Cell Count 4.15 X10^6/uL (4.0-5.2); Red Cell Distribution Width 15.2 % (11.6-14.8); White Blood Cell Count 6.2 X10^3/uL (4.5-11.0)
[2024-08-06 09:59] LABS: Alanine Aminotransferase 16 IU/L (<35); Albumin 4.3 g/dL (3.5-5.0); Albumin Globulin Ratio 1.5 (1.0-2.8); Alkaline Phosphatase 87 U/L (38-126); Aspartate Aminotransferase 24 IU/L (14-36); BUN Creatinine Ratio 14.9 (6-22); Bilirubin Total 0.9 mg/dL (0.2-1.3); Blood Urea Nitrogen 11 mg/dL (7-17); Calcium 9.5 mg/dL (8.4-10.2); Carbon Dioxide 27 mmol/L (22-32); Chloride 102 mmol/L (98-107); Cholesterol 212 mg/dL (140-199); Estimated Glomerular Filt Rate > 60 mL/min (>60); Globulin 2.9 g/dL (1.7-4.1); Glucose 100 mg/dL (80-110); HDL Cholesterol 96 mg/dL (40-60); HEMOLYSIS < 15 (0-50); LDL Cholesterol Calculated 101 mg/dL (<100); Potassium 4.3 mmol/L (3.4-5.1); Sodium 137 mmol/L (137-145); Total Protein 7.2 g/dL (6.3-8.2); Triglycerides 73 mg/dL (35-150)
== END ==
PROVIDERS: Family Provider Internal Medicine Cardiovascular Disease; PCP Family Medicine; Visit Provider Nurse Practitioner Family
DX: I35.0 Nonrheumatic aortic (valve) stenosis (principal); I10 Essential (primary) hypertension; I73.9 Peripheral vascular disease, unspecified; E78.2 Mixed hyperlipidemia
CPT/HCPCS: 36415; 80053; 80061; 85025

== ENCOUNTER → 2024-09-26 12:22 | Outpatient (CLI) | payer OTHER, MEDICAID, SELFPAY ==
--- NOTE | 2024-09-26 | DI.US.S_ITS ---
PROCEDURE: US ARTERIAL DUPLEX LE BI INDICATIONS: PAD TECHNIQUE: Color and pulse Doppler interrogation was performed of both lower extremity arterial systems, with image documentation. COMPARISON: None. FINDINGS: Right lower extremity: Common femoral artery: 91 cm/sec Deep femoral artery: 91 cm/sec Proximal superficial femoral artery: 93 cm/sec Mid superficial femoral artery: 58 cm/sec Distal superficial femoral artery: 38 cm/sec Popliteal artery: 40 cm/sec Posterior tibial artery: 38 cm/sec Anterior tibial artery/dorsalis pedis: 31 cm/sec Zuniga-scale imaging description: Moderate atherosclerotic plaque in the right [employer] BUSINESS [employer] Left lower extremity: Common femoral artery: 114 cm/sec Deep femoral artery: 70 cm/sec Proximal superficial femoral artery: 80 cm/sec Mid superficial femoral artery: 103 cm/sec Distal superficial femoral artery: 47 cm/sec Popliteal artery: 56 cm/sec Posterior tibial artery: 30 cm/sec Anterior tibial artery/dorsalis pedis: 34 cm/sec Zuniga-scale imaging description: Trace atherosclerotic plaque IMPRESSION: Bilateral atherosclerotic plaque without hemodynamically significant stenosis in either lower extremity arterial system Approved by: Ziyad Serna M.D. on 09/28/2024 at 16:53
--- NOTE | 2024-09-26 | DI.ECHO.S_ITS ---
[facility] : : [address] : : [place] : : [id number] : : Phone: [phone] Echocardiogram Report + + :Name: SYDNEE LANGE Study Date: 09/26/2024 Height: 62 in : :[facility] ReadingLocation: Weight: 164 lb : : Gender: Female BSA: 1.8 m2 : :: 1950 Age: 73 yrs BP: 137/74 mmHg: :Reason For Study: AORTIC VALVE STENOSIS : :Ordering Physician: KT, : :MARTHA Performed By: Dion Quinn : :Referring: MARTHA DUFFY : + + Interpretation Summary The ejection fraction is estimated to be 55-60%. There is moderate mitral annular calcification. The peak aortic velocity is 2.3 m/sec. The peak aortic velocity on the previous exam was 2.29 m/sec. There is moderate aortic stenosis. The right ventricular systolic pressure is estimated to be at least 33 mmHg based on an estimated right atrial pressure of 3 mm Hg. Procedure: A two-dimensional transthoracic echocardiogram with color flow and Doppler was performed. The study quality was technically good. Comparison is made with the echocardiogram of 06/02/2023. The patient was in normal sinus rhythm during the exam. Left Ventricle: The left ventricle is normal in size. Left ventricular wall thickness is mildly increased. There is no ventricular septal defect visualized. The ejection fraction is estimated to be 55-60%. There are no focal wall motion abnormalities. Diastolic parameters suggest a relaxation abnormality of the left ventricle, consistent with probable normal filling pressures. Right Ventricle: The right ventricle is normal in size and function. Atria: The left atrial size is normal. Right atrial size is normal. There is no Doppler evidence for an interatrial shunt. Mitral Valve: There is moderate mitral annular calcification. The mitral valve leaflets appear mildly thickened, but open well. There is trace mitral regurgitation. Aortic Valve: The aortic valve is not well visualized. There is moderate aortic stenosis. The peak aortic velocity is 2.3 m/sec. The aortic valve mean gradient is 13.9 mmHg. The calculated aortic valve area is 1.0 cm2. The peak aortic velocity on the previous exam was 2.29 m/sec. There has been no significant change since the previous study. There is mild aortic regurgitation. Tricuspid Valve: The tricuspid valve leaflets are thin and pliable. There is trace tricuspid regurgitation. The right ventricular systolic pressure is estimated to be at least 33 mmHg based on an estimated right atrial pressure of 3 mm Hg. Pulmonic Valve: The pulmonic valve is not well visualized. Great Vessels: The aortic root is normal size. The dimensions of the ascending aorta are normal. The pulmonary is not well visualized. The IVC is of normal diameter and collapses greater than 50% with a sniff. This suggests a low right atrial pressure of 3 mm Hg. Pericardium/ Pleura There is no pericardial effusion. There is no pleural effusion. MMode/2D Measurements & Calculations LVIDd: 4.1 cm LVOT diam: 1.7 cm LVIDs: 2.7 cm Ao root diam: 2.9 cm FS: 34.4 % asc Aorta Diam: 3.0 cm EPSS: 0.77 cm IVSd: 1.2 cm LVPWd: 1.00 cm LV ennis. diameter/BSA (cm/m^2): 2.3 LV sys. diameter/BSA (cm/m^2): 1.5 LA A2 area: 17.0 cm2 RA long axis: 3.9 cm LA A4 area: 17.0 cm2 RA area: 9.0 cm2 LA length (vol): 4.8 cm RA vol: 17.6 ml LA vol: 51.0 ml RA : 10.0 ml/m2 LA vol index: 29.0 ml/m2 IVC diam: 1.4 cm RVD1 (basal): 3.1 cm RVD2 (mid): 2.1 cm TAPSE: 2.3 cm Doppler Measurements & Calculations Ao V2 max: 267.3 cm/sec LVOT Max Felix: 102.9 cm/sec Ao V2 mean: 171.8 cm/sec LV V1 max P.2 mmHg Ao max P.6 mmHg LV V1 VTI: 23.6 cm Ao mean P.9 mmHg RACHEL(I,D): 1.0 cm2 Ao V2 VTI: 54.9 cm RACHEL(V,D): 0.92 cm2 sev ratio: 0.43 RACHEL indexed to BSA (cm^2/m^2): 0.59 MV E max felix: 99.6 cm/sec TR max felix: 274.9 cm/sec MV A max felix: 125.6 cm/sec TR max P.2 mmHg MV E/A: 0.79 Med Peak E' Felix: 4.2 cm/sec E/E' med: 23.9 Lat Peak E' Felix: 5.9 cm/sec E/E' lat: 16.9 E/e' average: 20.4 MV dec time: 0.31 sec MVA(VTI): 1.6 cm2 MV V2 mean: 91.3 cm/sec SV(LVOT): 56.7 ml MV mean P.6 mmHg MV V2 VTI: 36.1 cm Reading Physician:11:22 AM
== END ==
PROVIDERS: Family Provider Internal Medicine Cardiovascular Disease; PCP Family Medicine; Referring Provider Internal Medicine Cardiovascular Disease; Visit Provider Internal Medicine Cardiovascular Disease
DX: I73.9 Peripheral vascular disease, unspecified (principal); I34.81 Nonrheumatic mitral (valve) annulus calcification; I35.2 Nonrheumatic aortic (valve) stenosis with insufficiency
CPT/HCPCS: 93306; 93925

== ENCOUNTER → 2025-02-09 08:49 | Outpatient (CLI) | payer OTHER, MEDICAID, SELFPAY ==
--- NOTE | 2025-02-09 08:52 | DI.CT.S_ITS ---
PROCEDURE: CT CHEST WO CON INDICATIONS: LUNG CANCER TECHNIQUE: Noncontrast 2.0-2.5 mm thick sections acquired from the pulmonary apices to the posterior costophrenic angles. 7 mm thick axial MIP, and 5 mm coronal and sagittal reformats were then acquired. For radiation dose reduction, the following was used: automated exposure control, adjustment of mA and/or kV according to patient size. COMPARISON: [facility], CT, CT CHEST WO CON, 07/26/2023, 9:50. [facility], CT, CT CHEST WO CON, 08/06/2024, 9:07. FINDINGS: Image quality: Diagnostic. Lower Neck: No enlarged lymph nodes. Thyroid: No thyroid nodules which require sonographic follow up, per consensus guidelines. Axillae: No enlarged lymph nodes. Chest Wall: Unremarkable. Bones: No suspicious osseous lesion. Lungs and Pleura: No pneumothorax or pleural effusions. Moderate emphysematous change. No consolidation or suspicious nodules. A few calcified granuloma. Heart: Heart size is normal. Three-vessel coronary artery calcifications. No pericardial effusion. Thoracic Vessels: The aorta and pulmonary arteries demonstrate normal size. Mediastinum and Yecenia: No enlarged lymph nodes. Esophagus: No wall thickening. No hiatal hernia. Upper Abdomen: Cholecystectomy clips. IMPRESSION: No suspicious pulmonary nodules. LUNG-RADS 1; continued annual screening, if eligible. Clinically Significant Non-pulmonary Findings: Moderate to severe coronary artery calcifications. Dictated by: Manuel Fairchild M.D. on 02/10/2025 at 17:19 Approved by: Manuel Fairchild M.D. on 02/10/2025 at 17:31
--- NOTE | 2025-02-09 08:52 | DI.MG.S_ITS ---
MM screening mammo BI: 02/09/2025. BI-RADS: 2 CLINICAL: 74-year old female for bilateral screening mammogram. Tyrer-Cuzick lifetime risk of 6.7%. No personal or first-degree family history of breast cancer. Current reported family history of breast cancer: maternal aunt, second maternal aunt and third maternal aunt. The patient had a prior right breast biopsy. PRIOR EXAMS 01/11/2024, 11/25/2022, 11/24/2021, 05/09/2019. MAMMOGRAPHY TECHNIQUE: 2D and 3D (tomosynthesis) digital mammographic views obtained, with additional images as needed for full coverage. Current study was also evaluated with a Computer Aided Detection (CAD) system. DENSITY C. The breasts are heterogeneously dense, which may obscure small masses. MAMMOGRAPHY FINDINGS Right: Biopsy marker present on the right. There are no suspicious masses, calcifications, or other findings in the breast. Left: No suspicious mass, asymmetry, microcalcification, or other abnormality seen. IMPRESSION: Right * No evidence of malignancy with benign findings. Left * No evidence of malignancy. RECOMMENDATIONS Bilateral * Annual screening mammography. OVERALL ASSESSMENT CATEGORY BI-RADS-2: Benign. The [employer] recommends annual screening mammography beginning at age 40 for women with average risk of breast cancer. ELECTRONICALLY SIGNED: Pradip Thurman M.D. on 02/10/2025 at 05:54:51 PM PT Interpreting Station ID: [id number]
== END ==
LOC: MAMMO 08:51
PROVIDERS: Family Provider Internal Medicine Cardiovascular Disease; PCP Family Medicine; Referring Provider Radiology Radiation Oncology; Visit Provider Radiology Radiation Oncology
DX: Z12.31 Encounter for screening mammogram for malignant neoplasm of breast (principal); Z80.3 Family history of malignant neoplasm of breast; R92.333 Mammographic heterogeneous density, bilateral breasts; C34.31 Malignant neoplasm of lower lobe, right bronchus or lung; I25.10 Atherosclerotic heart disease of native coronary artery without angina pectoris
CPT/HCPCS: 71250; 77063; 77067